=== PATIENT | female | born 1990 | race Caucasian/White ===

== ENCOUNTER 2019-06-15 22:57 | Emergency (ER) | payer SELFPAY ==
[~2019-06-15] VITALS: Ht 170.2 cm; Wt 53.7 kg
[~2019-06-15 22:57] MED LIST: HYDR-4011 PO; NAPR-985 PO
[2019-06-15 23:00] VITALS: Ht 170.2 cm; Wt 53.7 kg
[2019-06-16] MEDS ORDERED: IBUPROFEN 200 MG TAB PO ONE (02:30)
[2019-06-16 03:47] VITALS: BP 133/86; PULSE 79; RESP 18
[2019-06-16] MEDS ORDERED: HYDROCODONE/APAP (5/325) TAB PO ONE (04:00)
--- NOTE | 2019-06-17 05:37 | ERD ---
ER Documentation Chief Complaint Chief Complaint L ELBOW PAIN AFTER FALL THIS MORNING, l UPPER ARM PAIN HPI 29-year-old female presents to the emergency department complaining of moderate to severe left shoulder pain which is constant and worse with movement after a fall earlier today out of her bed. She states she fell directly on the left shoulder. She tried [id number]-[id number] medication with some relief. She denies any head injury, loss of consciousness, or other symptoms or injuries at this time. ROS All systems reviewed and are negative except as per history of present illness. Medications Home Meds Active Scripts Naproxen* (Naprosyn*) 500 Mg Tablet, 500 MG PO BID PRN for PAIN AND/OR INFLAMMATION, #30 TAB Prov:KATHERINE PEREZ PA-C 06/16/19 Hydrocodone/Acetaminophen (Monaca 5-325 Tablet) 1 Each Tablet, 1 TAB PO Q6H PRN for PAIN, #10 TAB Prov:KATHERINE PEREZ PA-C 06/16/19 Allergies Allergies: Coded Allergies: No Known Allergy (Unverified , 06/15/19) PMhx/Soc Medical and Surgical Hx: pt denies Medical Hx, pt denies Surgical Hx Hx Alcohol Use: No Hx Substance Use: No Hx Tobacco Use: No Smoking Status: Never smoker FmHx Family History: No diabetes Physical Exam Vitals Vital Signs Date Temp Pulse Resp B/P (MAP) Pulse Ox O2 O2 Flow FiO2 Time Delivery Rate 06/16/19 99.0 79 18 133/86 100 Room Air 03:47 (102) 06/15/19 98.3 111 20 157/77 98 23:00 (103) Physical Exam Const: No acute distress Head: Atraumatic Eyes: Normal Conjunctiva ENT: Normal External Ears, Nose and Mouth. Neck: Full range of motion. No meningismus. Resp: No respiratory distress. Skin: No petechiae or rashes Back: No midline or flank tenderness Ext: Tenderness palpation over the left anterior shoulder. Limited range of motion of the left shoulder secondary to pain. Patient is neurovascularly intact to the left upper extremity. 2+ radial pulses of the left upper extremity. Neur: Awake and alert Psych: Normal Mood and Affect Results 24 hrs Current Medications Medications Dose Sig/Ilda Start Time Status Last (Trade) Ordered Route PRN Stop Time Admin Dose Reason Admin Ibuprofen 400 mg ONCE ONCE 06/16/19 DC 06/16/19 (Motrin) PO 02:30 06/16/19 02:05 02:31 1 tab ONCE ONCE 06/16/19 DC 06/16/19 Acetaminophen PO 04:00 06/16/19 03:41 / 04:00 Hydrocodone Bitart (Monaca (5/)) [place] [address] Radiology Main Line: [phone] DIAGNOSTIC IMAGING REPORT Patient: TOBI LAWSON : 1990 Age: 29 Sex: F MR #: [id number] DOS: 06/16/19 0000 Ordering MD: KATHERINE PEREZ PA-C Location: [facility] Room/Bed: PROCEDURE: Left elbow series CLINICAL INDICATION: Trauma TECHNIQUE: AP, lateral and oblique images left elbow were obtained COMPARISON: None FINDINGS: No evidence of acute fracture dislocation. The bony mineralization is normal. No focal bony blastic or lytic lesions. No evidence of a left elbow joint effusion. Soft tissues are unremarkable. IMPRESSION: No evidence acute fracture dislocation or left elbow joint effusion. RPTAT:AAJJ Physician Coleen Date Time Electronically viewed and signed by Physician Coleen on 06/16/2019 02:52 BM/ CC: KATHERINE PEREZ PA-C [id number] [place] [id number] Radiology Main Line: [phone] DIAGNOSTIC IMAGING REPORT Patient: TOBI LAWSON : 1990 Age: 29 Sex: F MR #: [id number] DOS: 06/16/19 0000 Ordering MD: KATHERINE PEREZ PA-C Location: [facility] Room/Bed: PROCEDURE: Left shoulder series CLINICAL INDICATION: Trauma and pain TECHNIQUE: 3 views left shoulder were obtained COMPARISON: None FINDINGS: Acute nondisplaced left proximal humeral fracture at the junction of the humeral head and metaphysis. No other fracture or dislocation. No acromioclavicular j oint separation. No focal bony blastic or lytic lesions. Soft tissues are unremarkable. IMPRESSION: Acute nondisplaced fracture of proximal left humerus without dislocation or AC separation. RPTAT:AAJJ Physician Coleen Date Time Electronically viewed and signed by Severiano Eisenberg Physician on 06/16/2019 02:52 BM/ CC: KATHERINE PEREZ PA-C [id number] Procedures/MDM 21-year-old female presents with signs, symptoms, x-ray findings consistent with proximal left humerus fracture. Patient required shoulder immobilizer for immobilization of fracture.Splint Assessment: Neurovascularly intact post splint placement with good fit. Patient's extremity symptoms have stabilized while they have been evaluated in the department and are appropriate for outpatient follow up. No evidence of compartment syndrome, neurologic injury, vascular injury, open joint, open fracture, tendon laceration, or foreign body. I did advise for 24 to 48-hour follow-up with orthopedic physician. Resources were given to do so. No evidence of life-threatening pathology at time of discharge. Pt/family in agreement with discharge plan/diagnosis. Pt/family advised to return immediately with any new or worsening symptoms. Follow-up with primary care ph ysician within the next 1-2 days. Patient's blood pressure was elevated (>120/80) but appears stable without evidence of hypertension emergency or urgency. The patient is to follow-up and pursue outpatient monitoring and therapy with their primary care physician within 1 week and return immediately if they have any new, worsening, or concerning symptoms. Disclaimer: Inadvertent spelling and grammatical errors are likely due to EHR/dictation software use and do not reflect on the overall quality of patient care. Also, please note that the electronic time recorded on this note does not necessarily reflect the actual time of the patient encounter. Departure Diagnosis: Primary Impression: Fracture of humeral head, left, closed Encounter type: initial encounter Qualified Codes: S42.292A - Other displaced fracture of upper end of left humerus, initial encounter for closed fracture Condition: Fair Patient Instructions: Fracture, Upper Extremity Referrals: [facility] YOU HAVE RECEIVED A MEDICAL SCREENING EXAM AND THE RESULTS INDICATE THAT YOU DO NOT HAVE A CONDITION THAT REQUIRES URGENT TREATMENT IN THE EMERGENCY DEPARTMENT. FURTHER EVALUATION AND TREATMENT OF YOUR CONDITION CAN WAIT UNTIL YOU ARE SEEN IN YOUR DOCTORS OFFICE WITHIN THE NEXT 1-2 DAYS. IT IS YOUR RESPONSIBILITY TO MAKE AN APPOINTMENT FOR FOLOW-UP CARE. IF YOU HAVE A PRIMARY DOCTOR --you should call your primary doctor and schedule an appointment IF YOU DO NOT HAVE A PRIMARY DOCTOR YOU CAN CALL OUR PHYSICIAN REFERRAL HOTLINE AT IF YOU CAN NOT AFFORD TO SEE A PHYSICIAN YOU CAN CHOSE FROM THE FOLLOWING [facility] [address] [facility] [address] [facility] [address] [facility] [address] [facility] [address] [facility] [facility] [address] [facility] [facility] Urgent Care 7 a.m.- 11 p.m. Every Day of the Week NO APPOINTMENT OR AUTHORIZATION NEEDED [facility] Hours: Mon-Fri 9:00 AM - 5:00 PM Additional Instructions: SPECIALIST: YOU HAVE A MEDICAL CONDITION WHICH REQUIRES YOU TO SEE A SPECIALIST WITHIN THE NEXT 1-2 DAYS. PLEASE FOLLOW UP WITH YOUR PRIMARY PHYSICIAN FOR REFFERAL.IF YOU DO NOT HAVE A PRIMARY CARE PHYSICIAN AND/OR YOU CAN NOT AFFORD TO SEE A PHYSICIAN THE FOLLOWING RESOURCES HAVE BEEN SUPPLIED TO YOU. IT IS YOUR RESPONSIBILITY TO BE SEEN BY THE SPECIALIST: ORTHOPEDICS KATHERINE PEREZ PA-C Jun 17, 2019 05:37
== END 2019-06-16 03:50 | disposition home or self-care (01) ==
LOC: FTE 22:57
DX: S42.292A Other displaced fracture of upper end of left humerus, initial encounter for closed fracture (principal); W06.XXXA Fall from bed, initial encounter; Y92.9 Unspecified place or not applicable
CPT/HCPCS: 73030